=== PATIENT | male | born 1950 | race Two or more races ===

== ENCOUNTER 2016-07-20 12:10 | Emergency (ER) | payer OTHER ==
[~2016-07-20] VITALS: Wt 75.0 kg
[~2016-07-20 12:10] MED LIST: ACET-2158 PO; CIPR500T4 PO; NORC 5-325 PO
--- NOTE | 2016-07-20 13:37 | ERD ---
ER Documentation Chief Complaint Date/Time DATE: 07/20/16 TIME: 13:35 Chief Complaint LEFT EAR PAIN FROM POSSIBLE FOREIGN BODY . HPI This is a 65-year-old male presents to the emergency room for evaluation of left ear discomfort. The patient states that he felt something crawling in his ear. He states that he felt the last night, he did play some water in his ear and states that he has not heard anything today for came to the ER today for evaluation. The patient had used a Q-tip in the ear denies any blood, and denies any trauma to the ear. ROS All systems reviewed and are negative except as per history of present illness. Medications Home Meds Active Scripts Hydrocodone Bit-Acetaminophen* ([place]*) 1 Tab Tab, 1 TAB PO Q6H Y for PAIN, #30 TAB Prov:SUNG LIM MD 03/01/14 Ciprofloxacin Hcl* (Ciprofloxacin Hcl*) 500 Mg Tab, 500 MG PO BID@06,18 for 3 Days Prov:SUNG LIM MD 03/01/14 Acetaminophen (TYLENOL 325 MG TAB) 325 Mg Tab, 650 MG PO Q6H Y for PAIN, #20 TAB Prov:SUNG LIM MD 03/01/14 Allergies Allergies: Coded Allergies: No Known Allergy (Unverified , 09/17/14) PMhx/Soc History of Surgery: Yes (testicular hernia repare, ) Anesthesia Reaction: No Hx Neurological Disorder: No Hx Respiratory Disorders: No Hx Cardiac Disorders: No Hx Psychiatric Problems: No Hx Miscellaneous Medical Probl: No Hx Alcohol Use: No Hx Substance Use: No Hx Tobacco Use: No Physical Exam Vitals Vital Signs Date Time Temp Pulse Resp B/P Pulse Ox O2 Delivery O2 Flow Rate FiO2 07/20/16 12:14 98.7 79 21 169/84 98 Physical Exam Const: No acute distress Head: Atraumatic Eyes: Normal Conjunctiva ENT: External auditory canal on the left erythematous, tympanic membrane within normal limits, no foreign body, right tympanic membrane and external auditory canal normal normal External Ears, Nose and Mouth. Neck: Full range of motion..~ No meningismus. Resp: Clear to auscultation bilaterally Cardio: Regular rate and rhythm, no murmurs Abd: Soft, non tender, non distended. Normal bowel sounds Skin: No petechiae or rashes Back: No midline or flank tenderness Ext: No cyanosis, or edema Neur: Awake and alert Psych: Normal Mood and Affect Procedures/MDM This 65-year-old male presents to the emergency room for evaluation of left- sided ear discomfort. He was concerned that there was a foreign body is here. I looked in the ear and there is no foreign body. This patient does have erythema and irritation to the external auditory canal which I feel would benefit from a course of Cortisporin. The patient will be discharged with a prescription for Cortisporin at this time. Departure Diagnosis: Primary Impression: Otitis externa Condition: Stable ADAMA LOUIE DO Jul 20, 2016 13:37
[2016-07-20] MEDS ORDERED: NPH10OT LEFT EAR (13:38)
[2016-07-20 13:46] VITALS: TEMP 98
== END 2016-07-20 13:45 | disposition home or self-care (01) ==
LOC: FTE 12:10
DX: H60.92 Unspecified otitis externa, left ear (principal)
CPT/HCPCS: 99283